=== PATIENT | female | born 1980 | race Caucasian/White ===

== ENCOUNTER 2016-09-19 16:41 | Emergency (ER) | payer OTHER ==
[~2016-09-19 16:41] MED LIST: BENZ100C PO; PRED20TA PO; PROAIR RESPICL90 MCG IH
[2016-09-19 17:06] VITALS: BP 140/80
[2016-09-19] MEDS ORDERED: DEXA2TAB PO (18:08)
[2016-09-19] MEDS ORDERED: AMOX500C PO (18:08)
--- NOTE | 2016-09-19 18:08 | PHYS DOC ---
Past Medical History Past Medical History: Asthma, Depression, Hypertension, Kidney Stone Past Surgical History: No Surgical History Alcohol Use: Occasionally Drug Use: None Adult General Chief Complaint Chief Complaint: SORE THROAT HPI HPI Patient is a 35 year old female presents emergency Department today with complaint of an atraumatic sore throat for the past 2 days. Patient states that her daughter was ill for approximately 10 days prior. She was diagnosed with strep 6 days ago. Patient denies antibiotic use, hospitalization or foreign travel within the past 90 days. Review of Systems Review of Systems Constitutional: Denies fever or chills [] Eyes: Denies change in visual acuity, redness, or eye pain [] HENT: Denies nasal congestion or sore throat [] Respiratory: Denies cough or shortness of breath [] Cardiovascular: No additional information not addressed in HPI [] GI: Denies abdominal pain, nausea, vomiting, bloody stools or diarrhea [] : Denies dysuria or hematuria [] Musculoskeletal: Denies back pain or joint pain [] Integument: Denies rash or skin lesions [] Neurologic: Denies headache, focal weakness or sensory changes [] Endocrine: Denies polyuria or polydipsia [] Allergies Allergies Allergies Coded Allergies Type Severity Reaction Last Updated Verified No Known Drug Allergies 05/12/16 No Physical Exam Physical Exam Constitutional: Well developed, well nourished, no acute distress, non-toxic appearance. HENT: Normocephalic, atraumatic, bilateral external ears normal, oropharynx moist, no oral exudates, nose normal. There is no trismus or hot potato speech. Posterior oropharynx with mild erythema. There is no tonsillar swelling or exudative plaques. There is no peritonsillar swelling or uvular deviation. Eyes: PERRLA, EOMI, conjunctiva normal, no discharge. [] Neck: Normal range of motion, no tenderness, supple, no stridor. There is no cervical lymphadenopathy. Cardiovascular:Heart rate regular rhythm, no murmur [] Lungs & Thorax: Bilateral breath sounds clear to auscultation [] Abdomen: Bowel sounds normal, soft, no tenderness, no masses, no pulsatile masses. [] Skin: Warm, dry, no erythema, no rash. [] Back: No tenderness, no CVA tenderness. [] Extremities: No tenderness, no cyanosis, no clubbing, ROM intact, no edema. [] Neurologic: Alert and oriented X 3, normal motor function, normal sensory function, no focal deficits noted. [] Psychologic: Affect normal, judgement normal, mood normal. [] Current Patient Data Vital Signs Vital Signs Date Time Temp Pulse Resp B/P Pulse Ox O2 Delivery O2 Flow Rate FiO2 09/19/16 17:06 97.9 80 20 99 Room Air 97.9 EKG EKG [] Radiology/Procedures Radiology/Procedures [] Course & Med Decision Making Course & Med Decision Making Pertinent Labs and Imaging studies reviewed. (See chart for details) [] Dragon Disclaimer Dragon Disclaimer This electronic medical record was generated, in whole or in part, using a voice recognition dictation system. Departure Departure Impression: Primary Impression: Pharyngitis Additional Impression: Strep throat exposure Disposition: HOME, SELF-CARE Condition: GOOD Referrals: BOYD ARTIS (PCP) Patient Instructions: Strep Throat, [id number] Additional Instructions: 1. Take medication as prescribed. 2. Review the discharge instructions for self-care and reasons to return the emergency department. 3. Follow-up with your primary care doctor within the next 5-7 days for reevaluation. Scripts Dexamethasone 2 Mg Tablet2 Mg PO ONCE #5 Prov:ZEYAD GAMEZ 09/19/16 Amoxicillin 500 Mg Capsule1 Cap PO TID #30 CAP Prov:ZEYAD GAMEZ 09/19/16 Problem Qualifiers ZEYAD GAMEZ Sep 19, 2016 18:08
[2016-09-20 05:32] LABS: NEGATIVE OBC STREP NEG; POSITIVE OBC STREP POS
== END 2016-09-19 18:18 | disposition home or self-care (01) ==
LOC: ER 16:41
DX: J02.9 Acute pharyngitis, unspecified (principal); J02.0 Streptococcal pharyngitis; J45.909 Unspecified asthma, uncomplicated; I10 Essential (primary) hypertension
CPT/HCPCS: 87070; 87880; 99283; 99284